=== PATIENT | male | born 1975 | race Two or more races ===

== ENCOUNTER → 2016-11-22 | Outpatient (CLI) | payer MEDICARE, MEDICAID ==
[2016-11-22 10:52] LABS: Basophils # (auto) 0.1 uL; Basophils % (auto) 0.8 % (0.0-2.0); Eosinophils # (auto) 0.3 uL; Eosinophils % (auto) 5.1 % (0.0-7.0); Hematocrit 47.1 % (41.0-53.0); Hemoglobin 15.8 g/dL (13.5-17.5); Lymphocytes # (auto) 1.8 uL; Lymphocytes % (auto) 28.8 % (10.0-50.0); Mean Corpuscular Hemoglobin 31.2 pg (28.0-32.0); Mean Corpuscular Hgb Conc. 33.5 g/dL (32.0-36.0); Mean Corpuscular Volume 92.9 fL (80.0-100.0); Mean Platelet Volume 8.1 fL (7.4-10.4); Monocytes # (auto) 0.6 uL; Monocytes % (auto) 9.4 % (0.0-12.0); Neutrophils # (auto) 3.5 uL; Neutrophils % (auto) 55.9 % (37.0-80.0); Platelet Count (auto) 228 10^3/uL (140-450); Red Cell Distribution Width 13.6 % (11.6-16.0); White Blood Cell 6.2 10^3/uL (4.4-10.8)
[2016-11-22 11:13] LABS: Albumin 3.8 g/dL (3.4-5.0); BUN/Creatinine Ratio 13.9; Bilirubin, Total 0.7 mg/dL (0.2-1.0); Calcium 9.5 mg/dL (8.5-10.1); Potassium 4.1 mmol/L (3.5-5.1); Total Protein 7.5 g/dL (6.4-8.2)
== END | disposition home or self-care (01) ==
LOC: LAB 09:55
DX: M85.9 Disorder of bone density and structure, unspecified (principal); M81.0 Age-related osteoporosis without current pathological fracture; M32.9 Systemic lupus erythematosus, unspecified
CPT/HCPCS: 36415; 80053; 85025; 85652; 86141